=== PATIENT | female | born 1940 | race Caucasian/White ===

== ENCOUNTER 2017-06-17 09:53 | Emergency (ER) | payer OTHER, SELFPAY ==
[~2017-06-17] VITALS: Ht 154.9 cm; Wt 104.3 kg
[~2017-06-17 09:53] MED LIST: ALBU3IS INH; DOC250 PO; DOCU100; DOCU100 PO; ENABLEX; FLUT110OIA INH; FURO40; FURO40 PO; GLIP10 PO; GLIP5; LEVSOD100; LEVSOD100 PO; LEVSOD112 PO; LOVA40 PO; NAPR220; OMEP20ER PO; POLTRIOPSO OD; PRED1SU OD; RANI150 PO; ROSU5 PO; RXOXYACE PO; STOOL SOFTNER; TOLT4 PO; TRIHYD253A; TRIHYD253B PO; TRIMTERENE; VERA100 PO; VERA240ER; [UNRECOGNIZED DRUG - OTHER]
[2017-06-17] MEDS ORDERED: ALBU2.5V5 (11:05)
[2017-06-17] MEDS ORDERED: LEVSOD125 PO (11:06)
[2017-06-17] MEDS ORDERED: AMLO5 PO (11:06)
[2017-06-17] MEDS ORDERED: SERT50 PO (11:07)
[2017-06-17] MEDS ORDERED: Omeprazole20 M1 PO (11:07)
[2017-06-17 12:09] LABS: Influenza A Negative (NEGATIVE); Influenza B Negative (NEGATIVE)
[2017-06-17 12:13] LABS: BASOPHILS ABSOLUTE AUTO 0.04 K/mm3 (0.00-0.23); BASOPHILS PERCENT AUTO 0 % (0-2); EOSINOPHILS ABSOLUTE AUTO 0.38 K/mm3 (0.00-0.68); EOSINOPHILS PERCENT AUTO 4 % (0-6); Hematocrit 41.3 % (33.0-51.0); Hemoglobin 12.4 g/dL (11.5-16.0); IMMATURE GRAN ABSOLUTE AUTO 0.04 K/mm3 (0.00-0.10); IMMATURE GRAN PERCENT AUTO 0 % (0-1); LYMPHOCYTES ABSOLUTE AUTO 2.67 K/mm3 (0.84-5.20); LYMPHOCYTES PERCENT AUTO 30 % (21-46); MONOCYTES ABSOLUTE AUTO 1.25 K/mm3 (0.16-1.47); MONOCYTES PERCENT AUTO 14 % (4-13); Mean Corpuscular HGB 26.8 pg (26.0-34.0); Mean Corpuscular Volume 89 fL (80-100); Mean Platelet Volume 11.2 fL (9.1-12.4); NEUTROPHILS ABSOLUTE AUTO 4.61 K/mm3 (1.96-9.15); NEUTROPHILS PERCENT AUTO 51 % (41-73); Platelet Count 193 K/mm3 (150-400); RDW Coefficient Variation 14.9 % (11.7-14.2); RDW Standard Deviation 48.9 fL (35.1-46.3); Red Blood Cell Count 4.62 M/mm3 (3.80-5.20); White Blood Cell Count 8.99 K/mm3 (4.00-11.30)
[2017-06-17 12:35] LABS: Alanine Aminotransfer (ALT/SGP 18 U/L (12-78); Albumin/Globulin Ratio 0.8 (0.8-1.8); Alk Phos 79 U/L (50-136); Anion Gap 6 mmol/L (6-16); Aspartate Aminotrans (AST/SGOT 22 U/L (12-37); Bilirubin, Total 0.4 mg/dL (0.1-1.0); Blood Urea Nitrogen 11 mg/dL (8-24); Bun/Creatinine Ratio 13.4 (12.0-20.0); CO2, Blood 30 mmol/L (21-32); Calcium, Blood 9.6 mg/dL (8.5-10.1); Chloride, Blood 104 mmol/L (98-108); Creatinine, Blood 0.82 mg/dL (0.40-1.00); Glomerular Filtration Rate >60 (60-); Glucose, Blood 130 mg/dL (70-99); Potassium, Blood 4.5 mmol/L (3.5-5.5); Sodium, Blood 140 mmol/L (136-145); Troponin I <0.015 ng/mL (0.000-0.040)
[2017-06-17] MEDS ORDERED: Prednisone20 MG PO (13:15)
[2017-06-17] MEDS ORDERED: Zithromax250 MG PO (13:15)
== END 2017-06-17 13:27 | disposition home or self-care (01) ==
LOC: ER 09:53
PROVIDERS: Emergency Medicine; Psychiatry & Neurology Psychiatry
DX: J44.1 Chronic obstructive pulmonary disease with (acute) exacerbation (principal); J20.9 Acute bronchitis, unspecified; J44.0 Chronic obstructive pulmonary disease with (acute) lower respiratory infection; E11.9 Type 2 diabetes mellitus without complications; I10 Essential (primary) hypertension
CPT/HCPCS: 36415; 71046; 80053; 83880; 84484; 85025; 87804; 93005; 93010; 94640; 96374; 99284; J2930

== ENCOUNTER → 2017-11-16 | Outpatient (CLI) | payer OTHER, SELFPAY ==
[~2017-11-16] MED LIST changes: +ALBU2.5V5; +AMLO5 PO; +LEVSOD125 PO; +Omeprazole20 M1 PO; +Prednisone20 MG PO; +SERT50 PO; +Zithromax250 MG PO
== END ==
LOC: LAB SHORT 12:15 → LAB 12:15
DX: R30.0 Dysuria (principal)
CPT/HCPCS: 87077; 87086; 87186

== ENCOUNTER 2018-12-16 07:54 | Day surgery (SDC) | payer OTHER ==
[~2018-12-16 07:54] MED LIST changes: -ALBU2.5V5; +ALBU2.5V5 NEB
[2018-12-28] MEDS ORDERED: GLIP2.5ER PO (11:20)
[2018-12-28] MEDS ORDERED: ROSU5 PO (11:21)
[2018-12-28] MEDS ORDERED: VITAMIN D31000 UNIT PO (11:21)
[2018-12-28] MEDS ORDERED: FURO40 PO (11:21)
[2018-12-28] MEDS ORDERED: GUAI600T33 PO (11:22)
[2018-12-28] MEDS ORDERED: Colace100 MG PO (11:22)
[2018-12-28] MEDS ORDERED: OCUVITE ADULT1 EAC1 PO (11:22)
[2018-12-28] MEDS ORDERED: Flonase 0.05% N16 GM (11:23)
== END 2018-12-16 23:58 | disposition home or self-care (01) ==
LOC: MOI US 07:54
DX: C50.912 Malignant neoplasm of unspecified site of left female breast (principal); Z17.0 Estrogen receptor positive status [ER+]
CPT/HCPCS: 19083; 77065; 88305; 88342; 88360; A4648

== ENCOUNTER → 2019-01-03 | Outpatient (CLI) | payer OTHER ==
[~2019-01-03] MED LIST changes: +Colace100 MG PO; +Flonase 0.05% N16 GM; +GLIP2.5ER PO; +GUAI600T33 PO; +OCUVITE ADULT1 EAC1 PO; +VITAMIN D31000 UNIT PO
== END | disposition home or self-care (01) ==
LOC: LAB 11:48 → LAB SHORT 11:48
DX: Z01.812 Encounter for preprocedural laboratory examination (principal); Z86.19 Personal history of other infectious and parasitic diseases
CPT/HCPCS: 87081

== ENCOUNTER → 2020-05-06 | Outpatient (CLI) | payer OTHER ==
[2020-05-06 13:53] LABS: BASOPHILS ABSOLUTE AUTO 0.06 K/mm3 (0.00-0.23); BASOPHILS PERCENT AUTO 1 % (0-2); EOSINOPHILS ABSOLUTE AUTO 0.28 K/mm3 (0.00-0.68); EOSINOPHILS PERCENT AUTO 2 % (0-6); Hematocrit 42.9 % (33.0-51.0); Hemoglobin 12.9 g/dL (11.5-16.0); IMMATURE GRAN ABSOLUTE AUTO 0.04 K/mm3 (0.00-0.10); IMMATURE GRAN PERCENT AUTO 0 % (0-1); LYMPHOCYTES ABSOLUTE AUTO 2.69 K/mm3 (0.84-5.20); LYMPHOCYTES PERCENT AUTO 23 % (21-46); MONOCYTES ABSOLUTE AUTO 0.98 K/mm3 (0.16-1.47); MONOCYTES PERCENT AUTO 8 % (4-13); Mean Corpuscular HGB 27.8 pg (26.0-34.0); Mean Corpuscular HGB Conc 30.1 g/dL (31.5-36.5); Mean Corpuscular Volume 93 fL (80-100); Mean Platelet Volume 11.3 fL (9.1-12.4); NEUTROPHILS ABSOLUTE AUTO 7.62 K/mm3 (1.96-9.15); NEUTROPHILS PERCENT AUTO 65 % (41-73); Platelet Count 220 K/mm3 (150-400); RDW Coefficient Variation 14.5 % (11.7-14.2); RDW Standard Deviation 48.7 fL (35.1-46.3); Red Blood Cell Count 4.64 M/mm3 (3.80-5.20); White Blood Cell Count 11.67 K/mm3 (4.00-11.30)
[2020-05-06 14:31] LABS: Alanine Aminotransfer (ALT/SGP 15 U/L (12-78); Albumin/Globulin Ratio 0.7 (0.8-1.8); Alk Phos 90 U/L (50-136); Anion Gap 9 mmol/L (6-16); Aspartate Aminotrans (AST/SGOT 20 U/L (12-37); Bilirubin, Total 0.4 mg/dL (0.1-1.0); Blood Urea Nitrogen 18 mg/dL (8-24); Bun/Creatinine Ratio 23.6 (12.0-20.0); CO2, Blood 22 mmol/L (21-32); Calcium, Blood 10.5 mg/dL (8.5-10.1); Chloride, Blood 107 mmol/L (98-108); Creatinine, Blood 0.76 mg/dL (0.40-1.00); Globulin, Blood 4.1 g/dL (2.2-4.0); Glomerular Filtration Rate >60 (60-); Glucose, Blood 107 mg/dL (70-99); Sodium, Blood 138 mmol/L (136-145); Total Protein, Blood 7.1 g/dL (6.4-8.2)
== END | disposition home or self-care (01) ==
LOC: LAB 12:39 → LAB SHORT 12:39
PROVIDERS: Family Medicine
DX: E11.9 Type 2 diabetes mellitus without complications (principal); R60.9 Edema, unspecified
CPT/HCPCS: 80053; 83880; 85025

== ENCOUNTER → 2021-06-18 | Outpatient (CLI) | payer OTHER ==
[2021-06-18 18:42] LABS: Alanine Aminotransfer (ALT/SGP 18 U/L (12-78); Albumin, Blood 3.3 g/dL (3.4-5.0); Albumin/Globulin Ratio 0.8 (0.8-1.8); Alk Phos 82 U/L (50-136); Anion Gap 1 mmol/L (6-16); Aspartate Aminotrans (AST/SGOT 17 U/L (12-37); Bilirubin, Total 0.5 mg/dL (0.1-1.0); Blood Urea Nitrogen 18 mg/dL (8-24); Bun/Creatinine Ratio 23.9 (12.0-20.0); CO2, Blood 32 mmol/L (21-32); Calcium, Blood 10.8 mg/dL (8.5-10.1); Chloride, Blood 107 mmol/L (98-108); Creatinine, Blood 0.75 mg/dL (0.40-1.00); Globulin, Blood 3.9 g/dL (2.2-4.0); Glomerular Filtration Rate >60 (60-); Glucose, Blood 104 mg/dL (70-99); Potassium, Blood 4.7 mmol/L (3.5-5.5); Sodium, Blood 140 mmol/L (136-145); Total Protein, Blood 7.2 g/dL (6.4-8.2)
== END ==
LOC: LAB SHORT 12:00 → LAB 12:00
PROVIDERS: Nurse Practitioner Family
DX: E11.42 Type 2 diabetes mellitus with diabetic polyneuropathy (principal)
CPT/HCPCS: 80053; 83036

== ENCOUNTER → 2022-02-25 | Outpatient (CLI) | payer OTHER | LOC: LAB 14:41 → LAB SHORT 14:41 | DX: N39.0 Urinary tract infection, site not specified (principal) | CPT/HCPCS: 87077; 87086; 87186 ==

== ENCOUNTER 2023-02-12 00:05 | Emergency (ER) | payer OTHER ==
[~2023-02-12] VITALS: Ht 157.5 cm; Wt 91.6 kg
[~2023-02-12 00:05] MED LIST changes: +LEVOTHYROXINE112 M18 PO
[2023-02-12 00:46] LABS: BASOPHILS ABSOLUTE AUTO 0.04 K/mm3 (0.00-0.23); BASOPHILS PERCENT AUTO 0 % (0-2); EOSINOPHILS ABSOLUTE AUTO 0.09 K/mm3 (0.00-0.68); EOSINOPHILS PERCENT AUTO 1 % (0-6); Hematocrit 34.6 % (33.0-51.0); IMMATURE GRAN ABSOLUTE AUTO 0.09 K/mm3 (0.00-0.10); IMMATURE GRAN PERCENT AUTO 1 % (0-1); LYMPHOCYTES ABSOLUTE AUTO 3.06 K/mm3 (0.84-5.20); LYMPHOCYTES PERCENT AUTO 32 % (21-46); MONOCYTES ABSOLUTE AUTO 0.98 K/mm3 (0.16-1.47); MONOCYTES PERCENT AUTO 10 % (4-13); Mean Corpuscular HGB 29.6 pg (26.0-34.0); Mean Corpuscular HGB Conc 31.8 g/dL (31.5-36.5); Mean Corpuscular Volume 93 fL (80-100); Mean Platelet Volume 11.1 fL (9.1-12.4); NEUTROPHILS ABSOLUTE AUTO 5.32 K/mm3 (1.96-9.15); NEUTROPHILS PERCENT AUTO 56 % (41-73); Platelet Count 217 K/mm3 (150-400); RDW Coefficient Variation 13.6 % (11.7-14.2); Red Blood Cell Count 3.71 M/mm3 (3.80-5.20); White Blood Cell Count 9.58 K/mm3 (4.00-11.30)
[2023-02-12 01:07] LABS: International Normalized Ratio 1.04; Prothrombin Time Results 10.9 Sec (9.7-11.5)
[2023-02-12 01:14] LABS: Albumin, Blood 2.9 g/dL (3.4-5.0); Albumin/Globulin Ratio 0.8 (0.8-1.8); Bilirubin, Total 0.3 mg/dL (0.1-1.0); Bun/Creatinine Ratio 18.1 (12.0-20.0); Calcium, Blood 9.9 mg/dL (8.5-10.1); Creatinine, Blood 0.83 mg/dL (0.40-1.00); Globulin, Blood 3.6 g/dL (2.2-4.0); Magnesium, Blood 1.7 mg/dL (1.6-2.4); Phosphorus, Blood 2.1 mg/dL (2.5-4.9); Potassium, Blood 3.7 mmol/L (3.5-5.5); Thyroid Stimulating Hormone 4.55 uIU/mL (0.360-4.800); Total Protein, Blood 6.5 g/dL (6.4-8.2)
[2023-02-12 02:31] LABS: Source, Urine Clean Catch
[2023-02-12 02:33] LABS: Bilirubin, Urine Neg (Neg); Blood, Urine Neg (Neg); Glucose Qualitative, Urine Neg (Neg); Ketones, Urine Neg (Neg); Leukocyte Esterase, Urine 2+ (Neg); Nitrite, Urine Pos (Neg); Protein, Urine 1+ (Neg); Urobilinogen, Urine NORM (Normal)
[2023-02-12 02:41] LABS: Appearance, Urine Clear (Clear); Color, Urine Yellow (P-Yellow)
[2023-02-12 02:42] LABS: Red Blood Cells, Urine 0-2 /hpf (0-2)
[2023-02-12 02:43] LABS: Bacteria Many /hpf; Squamous Epithelial Cells Mod /hpf (Few)
[2023-02-12 05:30] VITALS: BP 139/59
[2023-02-12] MEDS ORDERED: CEPH500 PO (07:14)
== END 2023-02-12 08:35 | disposition home or self-care (01) ==
LOC: ER 00:05
PROVIDERS: Emergency Medicine
DX: S09.90XA Unspecified injury of head, initial encounter (principal); N39.0 Urinary tract infection, site not specified; I10 Essential (primary) hypertension; E11.9 Type 2 diabetes mellitus without complications; E03.9 Hypothyroidism, unspecified; J45.909 Unspecified asthma, uncomplicated; E78.5 Hyperlipidemia, unspecified; M54.2 Cervicalgia; M54.50 Low back pain, unspecified; W18.30XA Fall on same level, unspecified, initial encounter; Z79.890 Hormone replacement therapy
CPT/HCPCS: 70450; 71260; 72125; 74177; 80053; 81001; 83605; 83735; 84100; 84443; 85025; 85610; 85730; 87077; 87086; 87186; 93005; 93010; 96365; 99285-25; J0696; P9612; Q9967

== ENCOUNTER 2023-03-25 07:37 | Emergency (ER) | payer OTHER ==
[~2023-03-25] VITALS: Ht 160 cm; Wt 83.9 kg
[~2023-03-25 07:37] MED LIST changes: +CEPH500 PO
[2023-03-25 08:17] LABS: BASOPHILS ABSOLUTE AUTO 0.04 K/mm3 (0.00-0.23); BASOPHILS PERCENT AUTO 0 % (0-2); EOSINOPHILS ABSOLUTE AUTO 0.26 K/mm3 (0.00-0.68); EOSINOPHILS PERCENT AUTO 2 % (0-6); Hematocrit 41.3 % (33.0-51.0); Hemoglobin 12.8 g/dL (11.5-16.0); IMMATURE GRAN ABSOLUTE AUTO 0.04 K/mm3 (0.00-0.10); IMMATURE GRAN PERCENT AUTO 0 % (0-1); LYMPHOCYTES ABSOLUTE AUTO 2.39 K/mm3 (0.84-5.20); LYMPHOCYTES PERCENT AUTO 20 % (21-46); MONOCYTES ABSOLUTE AUTO 1.07 K/mm3 (0.16-1.47); MONOCYTES PERCENT AUTO 9 % (4-13); Mean Corpuscular Volume 93 fL (80-100); Mean Platelet Volume 10.5 fL (9.1-12.4); NEUTROPHILS ABSOLUTE AUTO 8.13 K/mm3 (1.96-9.15); NEUTROPHILS PERCENT AUTO 68 % (41-73); Platelet Count 178 K/mm3 (150-400); RDW Coefficient Variation 12.8 % (11.7-14.2); RDW Standard Deviation 43.8 fL (35.1-46.3); Red Blood Cell Count 4.42 M/mm3 (3.80-5.20); White Blood Cell Count 11.93 K/mm3 (4.00-11.30)
[2023-03-25] MEDS ORDERED: ANAS1 PO (08:28)
[2023-03-25] MEDS ORDERED: GABA300 PO (08:29)
[2023-03-25] MEDS ORDERED: LIDO700A20 TOP (08:30)
[2023-03-25] MEDS ORDERED: MIRALAX17 GM PO (08:30)
[2023-03-25] MEDS ORDERED: MULVITA PO (08:32)
[2023-03-25] MEDS ORDERED: Acetaminophen325 M1 PO (08:33)
[2023-03-25] MEDS ORDERED: ALBU90OI INH (08:34)
[2023-03-25] MEDS ORDERED: ALUMINUM H320 MG/5 M PO (08:35)
[2023-03-25] MEDS ORDERED: IPRAT-ALBUT 0.5-3 ML (08:36)
[2023-03-25] MEDS ORDERED: LOPE2C (08:36)
[2023-03-25] MEDS ORDERED: OXYC5 PO (08:37)
[2023-03-25] MEDS ORDERED: DULCOLAX400 MG/5 M (08:37)
[2023-03-25] MEDS ORDERED: BISA10S (08:38)
[2023-03-25] MEDS ORDERED: PHENA200 PO (08:38)
[2023-03-25] MEDS ORDERED: Voltaren100 GM (08:39)
[2023-03-25 08:41] LABS: Albumin, Blood 2.8 g/dL (3.4-5.0); Albumin/Globulin Ratio 0.7 (0.8-1.8); Bilirubin, Total 0.4 mg/dL (0.1-1.0); Bun/Creatinine Ratio 10.5 (12.0-20.0); Calcium, Blood 10.2 mg/dL (8.5-10.1); Creatinine, Blood 0.76 mg/dL (0.40-1.00); Total Protein, Blood 6.8 g/dL (6.4-8.2)
[2023-03-25 09:28] LABS: Source, Urine Straight Cath
[2023-03-25 09:32] LABS: Bilirubin, Urine Neg (Neg); Blood, Urine 1+ (Neg); Color, Urine Yellow (P-Yellow); Glucose Qualitative, Urine Neg (Neg); Ketones, Urine Neg (Neg); Leukocyte Esterase, Urine Neg (Neg); Nitrite, Urine Neg (Neg); Protein, Urine 2+ (Neg); Specific Gravity, Urine 1.015 (1.003-1.022); Urobilinogen, Urine NORM (Normal)
[2023-03-25 09:40] LABS: Appearance, Urine Hazy (Clear)
[2023-03-25 09:41] LABS: Squamous Epithelial Cells Rare /hpf (Few)
[2023-03-25 09:42] LABS: Amorphous Light (0-Heavy); Bacteria Rare /hpf; Hyaline Casts 0-2 /lpf (0-2)
[2023-03-25 14:27] VITALS: BP 147/94
== END 2023-03-25 15:00 ==
LOC: ER 07:37
PROVIDERS: Family Medicine
DX: R41.0 Disorientation, unspecified (principal); E83.52 Hypercalcemia; E86.0 Dehydration; Z79.899 Other long term (current) drug therapy; I10 Essential (primary) hypertension; E78.5 Hyperlipidemia, unspecified; J45.909 Unspecified asthma, uncomplicated; E11.9 Type 2 diabetes mellitus without complications; E03.9 Hypothyroidism, unspecified
CPT/HCPCS: 36415; 70450; 72125; 80053; 81001; 82330; 85025; 93005; 93010; 96360; 96361; 96372-59; 99284-25; J1630; J7030; L0160